=== PATIENT | male | born 1955 | race Caucasian/White ===

== ENCOUNTER 2017-09-12 13:08 | Inpatient (IN) | payer BC ==
[~2017-09-12] VITALS: Ht 175.3 cm; Wt 100.2 kg
[2017-10-25] MEDS ORDERED: HYGROTON 2525 MG/TAB PO (12:53)
[2017-10-25] MEDS ORDERED: LEXAPRO20 MG PO (12:54)
[2017-10-25] MEDS ORDERED: CARDIZEM CD 24240 MG PO (12:54)
[2017-10-25] MEDS ORDERED: KLOR-CON SPRIN10 MEQ PO (12:55)
[2017-10-25] MEDS ORDERED: TAMBOCOR150 MG PO (12:55)
[2017-10-25] MEDS ORDERED: ZESTRIL40 MG PO (12:55)
[2017-10-25] MEDS ORDERED: FLOMAX 0.40.4 MG/CAP PO (12:56)
[2017-10-25] MEDS ORDERED: FERROUS SU325 MG/TAB PO (12:57)
[2017-10-25] MEDS ORDERED: VITAMIN C500 MG PO (12:57)
[2017-10-25] MEDS ORDERED: FOLIC ACID 40400 MCG PO (12:57)
[2017-10-25] MEDS ORDERED: DEPO-TESTOS200 MG/M1 IM (12:57)
[2017-10-29] VITALS (12 sets, daily range): BP systolic 121–156; BP diastolic 51–76; PULSE 56–93; TEMP 97.8–98.2
[2017-10-30 00:12] VITALS: BP 126/65; PULSE 92; TEMP 97.5
[2017-10-30 05:17] VITALS: BP 121/55; PULSE 85; TEMP 98.4
[2017-10-30 06:37] LABS: HEMATOCRIT 42.6 % (42.0-52.0)
[2017-10-30 08:48] VITALS: BP 146/54; PULSE 91; TEMP 97.7
[2017-10-30 11:33] VITALS: BP 137/52; PULSE 77; TEMP 97.6
[2017-10-30 16:15] VITALS: BP 156/71; PULSE 90; TEMP 97.7
[2017-10-30 20:00] VITALS: BP 142/77; BP 153/55; BP 163/65; PULSE 108; PULSE 71; TEMP 97.3; TEMP 99.7
[2017-10-31 04:00] VITALS: BP 157/47; PULSE 67; TEMP 98.4
[2017-10-31 06:34] LABS: HEMATOCRIT 37.6 % (42.0-52.0)
[2017-10-31] MEDS ORDERED: CELEBREX 200MG200 MG PO (07:05)
[2017-10-31] MEDS ORDERED: NORCO 325 MG-7.1 TAB PO (07:05)
[2017-10-31] MEDS ORDERED: ASPI325T6 PO (07:05)
[2017-10-31] MEDS ORDERED: SENOKOT S 50 MG1 TAB PO (07:06)
[2017-10-31] MEDS ORDERED: ROXICODONE 55 MG/TAB PO (07:06)
[2017-10-31 07:25] VITALS: BP 151/65; PULSE 72; TEMP 98.5
[2017-10-31 11:46] VITALS: BP 153/64; PULSE 72; TEMP 98.5
== END 2017-10-31 12:45 | disposition home or self-care (01) | DRG 470 ==
LOC: JCC 10-16 10:45
PROVIDERS: Orthopaedic Surgery
PROC: 0SR90JA Replacement of Right Hip Joint with Synthetic Substitute, Uncemented, Open Approach (ICD-10-PCS; principal; 2017-10-29 07:30)
DX: M16.11 Unilateral primary osteoarthritis, right hip (principal); I10 Essential (primary) hypertension; I48.91 Unspecified atrial fibrillation
CPT/HCPCS: A4216; A4314; A9284; C1713; C1776; J0690; J1100; J1885; J2250; J2405; J2704; J3010; J7050; J7120

== ENCOUNTER → 2017-10-02 | Outpatient (CLI) | payer BC | LOC: COL.LAB 11:55 | DX: Z01.812 Encounter for preprocedural laboratory examination (principal) ==

== ENCOUNTER → 2018-01-14 | Outpatient (CLI) | payer BC ==
[~2018-01-14] MED LIST: ASPI325T6 PO; CARDIZEM CD 24240 MG PO; CELEBREX 200MG200 MG PO; DEPO-TESTOS200 MG/M1 IM; FERROUS SU325 MG/TAB PO; FLOMAX 0.40.4 MG/CAP PO; FOLIC ACID 40400 MCG PO; HYGROTON 2525 MG/TAB PO; KLOR-CON SPRIN10 MEQ PO; LEXAPRO20 MG PO; NORCO 325 MG-7.1 TAB PO; ROXICODONE 55 MG/TAB PO; SENOKOT S 50 MG1 TAB PO; TAMBOCOR150 MG PO; VITAMIN C500 MG PO; ZESTRIL40 MG PO
== END ==
LOC: COL.RAD 12:14
DX: Z53.8 Procedure and treatment not carried out for other reasons (principal); H91.8X3 Other specified hearing loss, bilateral

== ENCOUNTER → 2021-06-30 | Outpatient (CLI) | payer MEDICARE, OTHER | LOC: COL.RAD 14:00 | DX: M25.551 Pain in right hip (principal); Z96.641 Presence of right artificial hip joint ==

== ENCOUNTER → 2021-07-18 | Outpatient (CLI) | payer MEDICARE, OTHER | LOC: COL.RAD 12:50 | DX: M25.551 Pain in right hip (principal) | CPT/HCPCS: J3301; Q9967 ==

== ENCOUNTER 2023-08-28 08:04 | Outpatient (CLI) | payer MEDICARE, OTHER ==
[2023-08-28] VITALS (14 sets, daily range): BP systolic 118–184; BP diastolic 60–84; PULSE 56–70; TEMP 97.5
[~2023-08-28] VITALS: Ht 175.3 cm; Wt 98.0 kg
[~2023-08-28 08:04] MED LIST changes: +ASPIRIN E.C. 8181 MG PO; +CARDIZEM CD 30300 MG PO; +GLUCOPHAGE XR500 M1 PO; +NORVASC 10MG10 MG PO; +ZYRTEC 10MG10 MG PO
--- NOTE | 2023-08-28 09:15 | NUR ---
POSITIONED PT IN SCANNER, DR ORLANDO HERE TO START PROCEDURE
[2023-08-28] MEDS ORDERED: fentaNYL 50 MCG/ML 2 ML VIAL IV ONE (09:25)
--- NOTE | 2023-08-28 09:25 | NUR ---
FENTANYL 25MCG IV GIVEN PER ORDER BEFORE PROCEDURE STARTED AND LIDOCAINE STARTED
--- NOTE | 2023-08-28 09:40 | NUR ---
SPECIMANS OBTAINED IN FORMULIN, BANDAID OVER SITE, PT PUT ON CART, AND CHEST X-RAY DONE
--- NOTE | 2023-08-28 12:41 | NUR ---
pt tolerated recovery period well. pt vs remained within normal limits and pt verbalized 0/10 pain and no difficulty breathing upon discharge. pt verbalized understanding of discharge instructions and IV discontinued.
== END 2023-08-28 12:43 | disposition home or self-care (01) ==
LOC: COL.RAD 08:04
DX: R91.1 Solitary pulmonary nodule (principal)
CPT/HCPCS: J3010